=== PATIENT | male | born 1980 | race Caucasian/White ===

== ENCOUNTER 2016-10-28 14:39 | Emergency (ER) | payer OTHER ==
[~2016-10-28] VITALS: Ht 175.3 cm; Wt 68.9 kg
[2016-10-28 14:42] VITALS: BP 138/82
--- NOTE | 2016-10-28 14:44 | ED HAND/WRIST INJURY COMPLAINT ---
History of Present Illness General Chief Complaint: Laceration Procedure Stated Complaint: HAND LAC Source: patient, old records Exam Limitations: no limitations Vital Signs & Intake/Output Vital Signs & Intake/Output Vital Signs Date Time Temp Pulse Resp B/P B/P Pulse O2 O2 Flow FiO2 Mean Ox Delivery Rate 10/28 1442 98.3 56 16 138/82 98 Allergies Coded Allergies: No Known Drug Allergies (05/21/16) Reconcile Medications No Known Home Medications Triage Note: PT STATES HE CUT HIS LEFT F/A WITH A BROKEN TILE. Triage Nurses Notes Reviewed? yes Occurred: just prior to arrival Duration: hour(s): (1), constant Timing: single episode today Injury Environment: home Severity: mild Severity Numbers: 2 Pain/Injury Location: Left: Forearm. Context: laceration Method of Injury: laceration No Modifying Factors: none Associated Symptoms: none HPI: 36-year-old male presents to the ER for evaluation status post sustaining laceration to his left forearm when he cut it on a piece of a broken tile while he was doing a home renovation project one hour prior to arrival. He now presents complete a mild aching pain over the left forearm nonradiating. He denies any other injury there is no numbness or tingling. He states he is up-to -date on his tetanus he is not taken anything for symptoms (FLORENCE SOW) Past History Travel History Traveled to [place] past 21 day No Medical History Any Pertinent Medical History? none Surgical History Surgical History: non-contributory Psychosocial History What is your primary language Brazilian Tobacco Use: Never used ETOH Use: occasional use Illicit Drug Use: denies illicit drug use Family History Hx Contributory? No (FLORENCE SOW) Review of Systems Review of Systems Constitutional: Reports: see HPI. All Other Systems: Reviewed and Negative Comments Review of systems: See HPI, All other systems negative. Constitutional, no chills no fever, no malaise HEENT: No visual changes no sore throat no congestion Cardiovascular: No chest pain , no palpitation Skin: no rashes, no change in skin Respiratory: No dyspnea no cough no sputum GI: No nausea no vomiting, no diarrhea, : No dysuria Muscle skeletal: No joint pain, Neurologic: No numbness , no headache Psych: No stress Heme/endocrine: No bruising Immunology: No lymphadenopathy (FLORENCE SOW) Physical Exam Physical Exam General Appearance: well developed/nourished, alert, awake Forearm Left: LACERATION Hand Left: normal inspection, normal range of motion Hand Right: normal inspection, normal range of motion Comments: Well-developed well-nourished patient in no apparent distress. HEENT: Atraumatic, extraocular motion intact Neck: Supple, FROM Back: FROM Cardiovascular: Regular rate and rhythms no murmurs Respiratory: No respiratory distress. Patient speaking in full complete sentences. Breath sounds clear to auscultation bilaterally: NO W/R/R Shoulder: Atraumatic/Stable. FROM . Elbow: Atraumatic/stable. FROM. No laxity Upper arm/Forearm: There is a 4 cm superficial linear laceration noted over the medial volar aspect of the mid left forearm the wound is clean there is no visualized or palpated foreign body no active bleeding there is no surrounding ecchymosis or erythema Nontender. No edema, 5 out of 5 advanced manager strength noted to bilateral upper extremities Hand/Wrist: Atraumatic/stable. Skin intact. FROM Pulses: Normal/equal radial pulses bilaterally. Brisk cap refill LOWER Extremities: full range of motion Neuro: awake, alert, and oriented to person, place and time. There were no obvious focal neurologic abnormalities. Skin: Warm & dry;No appreciable rash on exposed skin Psych: Mood affect normal, normal memory normal judgment. (FLORENCE SOW) Progress Differential Diagnosis: cellulitis, compartment syndrome, fracture, sprain Plan of Care: Current Medications Sig/Mega Start time Last Medication Dose Stop Time Status Admin Ibuprofen 800 MG ONCE ONE 10/28 1500 UNVr 10/28 (Motrin) 10/28 1501 1451 Lidocaine 20 ML ONCE ONE 10/28 1500 UNVr 10/28 (Lidocaine 1%) 10/28 1501 1451 The wound was thoroughly irrigated with normal saline Betadine peroxide. The wound is anesthetized with lidocaine 1% 5 mL sutures 3-0 X 5 administered by pa student under my direct supervision. pt tolerated procedure well. The wound edges were approximated well Discussed with the patient there is a possibility for by a not seen on examination to return in the ER with any concerns or signs of infection otherwise return in 7-10 days for suture removal answer all their questions afebrile, plan (FLORENCE SOW) Departure Departure Disposition: HOME OR SELF CARE Condition: Stable Clinical Impression Primary Impression: Forearm laceration Referrals: PATIENT HAS NO PRIMARY CARE DR Additional Instructions: Keep area clean and covered as discussed, bacitracin daily. Return to ER in 7- 10 days for suture removal. Please understand that foreign bodies such as glass or wood may not be visible to the naked eye or on plain x-rays. If the wound becomes red, swollen, increasingly more painful or if there is any drainage from the wound, please have it reevaluated by a physician for the possibility of a retained foreign body. Departure Forms: Customer Survey General Discharge Information Prescriptions: Current Visit Scripts No Known Home Medications (FLORENCE SOW) PA/HOME CARE ATTENDANT Co-Sign Statement Statement: ED Attending supervision documentation- [] I saw and evaluated the patient. I have also reviewed all the pertinent lab results and diagnostic results. I agree with the findings and the plan of care as documented in the PA's/HOME CARE ATTENDANT's documentation. [X] I have reviewed the ED Record and agree with the PA's/HOME CARE ATTENDANT's documentation. [] Additions or exceptions (if any) to the PAs/HOME CARE ATTENDANT's note and plan are summarized below: [] (LUCIUS MCCLENDON,LORNE Garcia) Procedures Laceration/Wound Repair Laceration/Wound Repair: Wound Location: upper extremity (left) Wound's Depth, Shape: linear, superficial Wound Length (cm): 4 Wound Explored: clean, no foreign body removed, irrigated extensively Irrigated w/ Saline (ccs): 200 Betadine Prep? Yes Anesthesia: 1% lidocaine Volume Anesthetic (ccs): 5 Wound Repaired With: sutures Suture Size/Type: 3:0 Number of Sutures: 5 Layer Closure? No Sterile Dressing Applied: Yes Tetanus Status: up to date (FLORENCE SOW)
== END 2016-10-28 15:24 ==
LOC: ERH 14:39
DX: S51.812A Laceration without foreign body of left forearm, initial encounter (principal); W45.8XXA Other foreign body or object entering through skin, initial encounter; Y93.E9 Activity, other interior property and clothing maintenance; Y92.009 Unspecified place in unspecified non-institutional (private) residence as the place of occurrence of the external cause